=== PATIENT | male | born 1970 | race Caucasian/White ===

== ENCOUNTER 2017-08-25 20:12 | Emergency (ER) | payer OTHER ==
[2017-08-25 20:26] VITALS: BP 159/91; PULSE 74; RESP 18; TEMP 98.8; O2SAT 98
[2017-08-25] MEDS ORDERED: SODIUM CHLOR 0.9% 1000 ML INJ 1,000 ML IV SCH (22:24)
[2017-08-25] MEDS ORDERED: SODIUM CHLORIDE 0.9% FLUSH 10 ML FLUSH IV FLUSH PRN (22:30)
[2017-08-25 22:40] VITALS: BP 134/95; PULSE 62; RESP 16; O2SAT 99
[2017-08-25 22:48] VITALS: BP 134/75; PULSE 62; RESP 16; O2SAT 99
[2017-08-25 23:01] LABS: AUTOMATED NEUTROPHIL # 4.6 TH/MM3 (1.8-7.7); BASOPHIL % 0.6 % (0.0-2.0); EOSINOPHIL # 0.1 TH/MM3 (0-0.4); EOSINOPHIL % 1.2 % (0.0-4.0); HEMATOCRIT 42.7 % (39.0-51.0); HEMOGLOBIN 14.3 GM/DL (13.0-17.0); LYMPH % 32.9 % (9.0-44.0); LYMPHOCYTE # 2.6 TH/MM3 (1.0-4.8); MEAN CELL VOLUME 86.2 FL (80.0-100.0); MEAN CORPUSCULAR HEMOGLOBIN 28.8 PG (27.0-34.0); MEAN CORPUSCULAR HGB CONC 33.4 % (32.0-36.0); MEAN PLATELET VOLUME 8.7 FL (7.0-11.0); MONO % 6.5 % (0.0-8.0); MONOCYTE # 0.5 TH/MM3 (0-0.9); NEUT % 58.8 % (16.0-70.0); PLATELET COUNT 244 TH/MM3 (150-450); RED BLOOD COUNT 4.95 MIL/MM3 (4.50-5.90); RED CELL DISTRIBUTION WIDTH 14.4 % (11.6-17.2); WHITE BLOOD COUNT 7.8 TH/MM3 (4.0-11.0)
[2017-08-25 23:08] LABS: PROTHROMBIN TIME - PATIENT 10.4 SEC (9.8-11.6)
[2017-08-25 23:23] LABS: ALBUMIN 4.1 GM/DL (3.4-5.0); AST (GOT) 31 U/L (15-37); BLOOD UREA NITROGEN 19 MG/DL (7-18); CALCIUM 8.9 MG/DL (8.5-10.1); CHLORIDE 107 MEQ/L (98-107); CREATININE 1.14 MG/DL (0.60-1.30); GLOMERULAR FILTRATION RATE 69 ML/MIN (>89); GLUCOSE,RANDOM 106 MG/DL (74-106); SODIUM (NA) 142 MEQ/L (136-145)
[2017-08-25 23:24] LABS: ALT (GPT) 79 U/L (12-78)
--- NOTE | 2017-08-25 23:24 | PD ---
HPI Chief Complaint: Bleeding Time Seen by Provider: 22:19 Travel History International Travel<30 days: No Contact w/Intl Traveler<30days: No Traveled to known affect area: No History of Present Illness HPI 47-year-old male arrives complaining of bleeding from a hemorrhoid. He notes bleeding for about 45 minutes continuously associated with a large volume of blood loss which is more than he has seen previously evidently. Rubber band ligation has been performed previously, 5 years prior. He denies blood thinner. He has had no pain. He reports standing in the shower for quite some time prior to ER arrival which he believes may have been somewhat helpful. [facility] Social History Tobacco Use: No Allergies-Medications (Allergen,Severity, Reaction): Coded Allergies: amoxicillin (Verified Allergy, Unknown, 08/25/17) Review of Systems Except as stated in HPI: all other systems reviewed are Neg General / Constitutional: No: Fever Physical Exam Narrative GENERAL: 47-year-old male pleasant well-nourished well-developed Vital Signs Date Time Temp Pulse Resp B/P (MAP) Pulse Ox O2 Delivery O2 Flow Rate FiO2 08/25/17 22:48 62 16 134/75 (94) 99 Room Air 08/25/17 22:40 62 16 134/95 (108) 99 Room Air 08/25/17 20:26 98.8 74 18 159/91 (113) 98 RECTAL: Clotted blood approximately 4 cm x 1 cm was collected. No active bleeding observed at the time of evaluation. SKIN: Warm and dry. HEAD: Atraumatic. Normocephalic. EYES: Pupils equal and round. No scleral icterus. No injection or drainage. ENT: No nasal bleeding or discharge. Mucous membranes pink and moist. NECK: Trachea midline. No JVD. CARDIOVASCULAR: Regular rate and rhythm. RESPIRATORY: No accessory muscle use. Clear to auscultation. Breath sounds equal bilaterally. GASTROINTESTINAL: Abdomen soft, non-tender, nondistended. Hepatic and splenic margins not palpable. MUSCULOSKELETAL: Extremities without clubbing, cyanosis, or edema. No obvious deformities. NEUROLOGICAL: Awake and alert. No obvious cranial nerve deficits. Motor grossly within normal limits. Five out of 5 muscle strength in the arms and legs. Normal speech. PSYCHIATRIC: Appropriate mood and affect; insight and judgment normal. Data Data Last Documented VS Vital Signs Date Time Temp Pulse Resp B/P (MAP) Pulse Ox O2 Delivery O2 Flow Rate FiO2 08/25/17 22:48 62 16 134/75 (94) 99 Room Air 08/25/17 20:26 98.8 Orders Orders Complete Blood Count With Diff (08/25/17 20:30) Comprehensive Metabolic Panel (08/25/17 20:30) Prothrombin Time / Inr (Pt) (08/25/17 20:30) Act Partial Throm Time (Ptt) (08/25/17 20:30) Type And Screen (08/25/17 20:30) Iv Access Insert/Monitor (08/25/17 22:24) Ecg Monitoring (08/25/17 22:24) Oximetry (08/25/17 22:24) Sodium Chlor 0.9% 1000 Ml Inj (Ns 1000 M (08/25/17 22:24) Sodium Chloride 0.9% Flush (Ns Flush) (08/25/17 22:30) Labs Laboratory Tests Test 08/25/17 22:29 White Blood Count 7.8 TH/MM3 Red Blood Count 4.95 MIL/MM3 Hemoglobin 14.3 GM/DL Hematocrit 42.7 % Mean Corpuscular Volume 86.2 FL Mean Corpuscular Hemoglobin 28.8 PG Mean Corpuscular Hemoglobin Concent 33.4 % Red Cell Distribution Width 14.4 % Platelet Count 244 TH/MM3 Mean Platelet Volume 8.7 FL Neutrophils (%) (Auto) 58.8 % Lymphocytes (%) (Auto) 32.9 % Monocytes (%) (Auto) 6.5 % Eosinophils (%) (Auto) 1.2 % Basophils (%) (Auto) 0.6 % Neutrophils # (Auto) 4.6 TH/MM3 Lymphocytes # (Auto) 2.6 TH/MM3 Monocytes # (Auto) 0.5 TH/MM3 Eosinophils # (Auto) 0.1 TH/MM3 Basophils # (Auto) 0.0 TH/MM3 CBC Comment DIFF FINAL Differential Comment Prothrombin Time 10.4 SEC Prothromb Time International Ratio 1.0 RATIO Activated Partial Thromboplast Time 22.7 SEC Blood Urea Nitrogen 19 MG/DL Creatinine 1.14 MG/DL Random Glucose 106 MG/DL Total Protein 7.7 GM/DL Albumin 4.1 GM/DL Calcium Level 8.9 MG/DL Alkaline Phosphatase 59 U/L Aspartate Amino Transf (AST/SGOT) 31 U/L Alanine Aminotransferase (ALT/SGPT) 79 U/L Total Bilirubin 0.4 MG/DL Sodium Level 142 MEQ/L Potassium Level 4.2 MEQ/L Chloride Level 107 MEQ/L Carbon Dioxide Level 29.0 MEQ/L Anion Gap 6 MEQ/L Estimat Glomerular Filtration Rate 69 ML/MIN MDM Medical Decision Making Medical Screen Exam Complete: Yes Emergency Medical Condition: Yes Medical Record Reviewed: Yes Differential Diagnosis Anemia, hematochezia, upper GI bleed, lower GI bleed, hemorrhoid Narrative Course CBC & BMP Diagram 08/25/17 22:29 Total Protein 7.7, Albumin 4.1, Calcium Level 8.9, Alkaline Phosphatase 59, Aspartate Amino Transf (AST/SGOT) 31, Alanine Aminotransferase (ALT/SGPT) 79 H, Total Bilirubin 0.4 Rectal exam at 1130pm reveals no bleed. At home care/precautions discussed. Follow up with Dr Dawson Diagnosis Primary Impression: Bleeding hemorrhoid Referrals: Boston Dawson MD 1 day Med/Other Pt SpecificInfo: No Change to Meds Disposition: 01 DISCHARGE HOME Condition: Stable Simone Loza MD Aug 25, 2017 23:24
[2017-08-25 23:26] LABS: ALKALINE PHOSPHATASE 59 U/L (45-117); TOTAL BILIRUBIN ADULT 0.4 MG/DL (0.2-1.0); TOTAL PROTEIN 7.7 GM/DL (6.4-8.2)
== END 2017-08-26 00:10 | disposition home or self-care (01) ==
LOC: NED 20:12 → NEPD 08-26 00:10
DX: K64.9 Unspecified hemorrhoids (principal)
CPT/HCPCS: 80053; 85025; 85610; 85730; 86850; 86900; 86901; 99284; J7030

== ENCOUNTER 2018-01-05 23:52 | Observation (INO) ==
[2018-01-06] MEDS ORDERED: Sod Chloride 0.9% Inj 1,000 ML IV.SIG ONE (00:14)
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
--- NOTE | 2018-01-06 00:38 | XR ---
EXAM DATE: 01/06/2018 12:32 AM EDT AGE/SEX: 47 years / Male INDICATIONS: Fever, nausea. CLINICAL DATA: This is the patient's initial encounter. Patient reports that signs and symptoms have been present for 1 day and indicates a pain score of 0/10. MEDICAL/SURGICAL HISTORY: None. None. COMPARISON: POI, XR CHEST PA AND LAT, 12/22/2017. POI, CT SHOULDER W/O CONTRAST, RIGHT, 8. . FINDINGS: There is stable patchy parenchymal density at the left lower lobe. No effusion. Shallow lung volumes. Cardiomegaly. Osseous structures are intact. There is a fracture through the right scapula as well a s right midclavicular fracture identified. CONCLUSION: Right clavicle and scapular fractures. Patchy left basilar airspace disease. Electronically signed by: yTson Calero MD 01/06/2018 12:37 AM EDT
[2018-01-06 00:43] LABS: Baso # (Auto) 0.1 th/mm3 (0.0-0.2); Baso % (Auto) 0.7 % (0.0-2.0); Eos # (Auto) 0.1 th/mm3 (0.0-0.4); Eos % (Auto) 0.7 % (0.0-4.0); Hematocrit 45.1 % (39.0-51.0); Lymph # (Auto) 2.3 th/mm3 (1.0-4.8); Lymph % (Auto) 17.8 % (9.0-44.0); Mean Corpuscular HGB Conc 33.3 % (32.0-36.0); Mean Corpuscular Hemoglobin 28.5 pg (27.0-34.0); Mean Corpuscular Volume 85.6 fL (80.0-100.0); Mean Platelet Volume 8.3 fL (7.0-11.0); Mono # (Auto) 1.1 th/mm3 (0.0-0.9); Mono % (Auto) 8.7 % (0.0-8.0); Neut # (Auto) 9.4 th/mm3 (1.8-7.7); Neut % (Auto) 72.1 % (16.0-70.0); Platelet Count 329 th/mm3 (150-450); Red Blood Count 5.27 mil/mm3 (4.50-5.90); Red Cell Distribution Width 13.3 % (11.6-17.2)
[2018-01-06 00:51] LABS: Chloride 101 meq/L (98-107); Potassium 3.6 meq/L (3.5-5.1); Sodium 137 meq/L (136-145)
[2018-01-06 00:54] LABS: Activated Partial Thrombo Time 27.7 sec (24.3-30.1); Prothrombin Time 10.4 sec (9.8-11.6)
[2018-01-06 00:55] LABS: Albumin 3.9 g/dL (3.4-5.0); Anion Gap 7 meq/L (5-15); Blood Urea Nitrogen 16 mg/dL (7-18); Carbon Dioxide 28.6 meq/L (21.0-32.0); Glucose,Random 124 mg/dL (74-106); Lipase 100 U/L (73-393)
[2018-01-06 00:57] LABS: Alanine Aminotransferase 64 U/L (12-78)
[2018-01-06 00:58] LABS: Aspartate Aminotransferase 25 U/L (15-37); Glomerular Filtration Rate 65 mL/min (>89)
[2018-01-06 00:59] LABS: Total Protein 8.4 g/dL (6.4-8.2)
[2018-01-06 01:00] LABS: Alkaline Phosphatase 96 U/L (45-117)
--- NOTE | 2018-01-06 01:45 | CT ---
EXAM DATE: 01/06/2018 1:32 AM EDT AGE/SEX: 47 years / Male INDICATIONS: Left abdominal pain. CLINICAL DATA: This is the patient's initial encounter. Patient reports that signs and symptoms have been present for 1 day and indicates a pain score of 8/10. MEDICAL/SURGICAL HISTORY: None. None. ORAL CONTRAST: No oral contrast ingested. RADIATION DOSE: 20.43 CTDI (mGy) COMPARISON: No prior exams available for comparison. TECHNIQUE: Multiple contiguous axial images were obtained through the abdomen and pelvis following b olus infusion of 100 ml Omnipaque 350 (iohexol) nonionic water-soluble contrast as a single exam do se. No oral contrast ingested. Using automated exposure control and adjustment of the mA and/or kV a ccording to patient size, radiation dose was kept as low as reasonably achievable to obtain optimal d iagnostic quality images. DICOM format image data is available electronically for review and compari son. FINDINGS: There is consolidation in the left lower lobe and right medial lung base. There is a small left effus ion. Diffuse hepatic steatosis. Small simple cyst right midpole kidney. Left kidney, adrenals, spleen , pancreas unremarkable. Gallbladder unremarkable. Stomach, urinary bladder unremarkable. Small fat-c ontaining inguinal hernias. There is no evidence of bowel obstruction, free fluid, or free air. There are no pathologically enlarged lymph nodes. A few scattered atherosclerotic calcifications are seen. Osseous structures are intact. Liver measures 22 cm in cephalocaudal dimension. Normal appendix. CONCLUSION: 1. Small left effusion, left lower lobe airspace disease and right medial basilar airspace disease. 2. Hepatomegaly and hepatic steatosis. 3. Simple cyst right kidney. Electronically signed by: Tyson Calero MD 01/06/2018 1:44 AM EDT
[2018-01-06] MEDS ORDERED: Ketorolac Inj 30 MG/ML (IVP) Vial IV.PUSH ONE (02:08)
[2018-01-06] MEDS ORDERED: Acetaminophen 325 MG Tablet PO PRN (02:29)
[2018-01-06] MEDS ORDERED: Temazepam 15 MG Capsule PO PRN (02:29)
[2018-01-06] MEDS ORDERED: Bisacodyl 10 MG Supp RECTAL PRN (02:29)
[2018-01-06] MEDS: Ketorolac Inj 30 MG/ML (IVP) Vial IV.PUSH PRN ×2 (02:48→08:36)
[2018-01-06] MEDS ORDERED: Levofloxacin 500 mg Premix Inj 500 MG/100 ML PIGGYBACK IV.SIG SCH (03:00)
[2018-01-06] MEDS ORDERED: Senna/Docusate Sodium 8.6/50 MG Tablet PO SCH (09:00)
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
[2018-01-06 23:09] VITALS: BP 125/78; PULSE 73; RESP 20; TEMP 97.5; O2SAT 95
[2018-01-07] MEDS ORDERED: Levofloxacin 500 mg Premix Inj 500 MG/100 ML PIGGYBACK IV.SIG SCH ×2 (02:00→03:00)
== END 2018-01-06 12:18 | disposition home or self-care (01) ==
LOC: PH3 23:52 → PHED 23:52 → PHEDA 23:52 → PH3 01-06 04:14
PROVIDERS: ADMIT Family Medicine; ATTEND Family Medicine
DX: R16.0 Hepatomegaly, not elsewhere classified; J18.9 Pneumonia, unspecified organism; S42.101A Fracture of unspecified part of scapula, right shoulder, initial encounter for closed fracture; K76.0 Fatty (change of) liver, not elsewhere classified; V86.55XA Driver of 3- or 4- wheeled all-terrain vehicle (ATV) injured in nontraffic accident, initial encounter; R11.0 Nausea; Q61.01 Congenital single renal cyst; S42.021A Displaced fracture of shaft of right clavicle, initial encounter for closed fracture